=== PATIENT | female | born 1980 | race Caucasian/White ===

== ENCOUNTER 2017-03-30 22:10 | Emergency (ER) | payer OTHER ==
[~2017-03-30] VITALS: Ht 162.6 cm; Wt 77.1 kg
[2017-03-30] MEDS ORDERED: NORCO 5-325 TA1 EACH PO (22:53)
[2017-03-30 23:17] VITALS: BP 100/58
== END 2017-03-30 22:54 | disposition home or self-care (01) ==
LOC: ER 22:10
DX: S63.502A Unspecified sprain of left wrist, initial encounter (principal); S90.211A Contusion of right great toe with damage to nail, initial encounter; F17.210 Nicotine dependence, cigarettes, uncomplicated; F10.99 Alcohol use, unspecified with unspecified alcohol-induced disorder; Z88.8 Allergy status to other drugs, medicaments and biological substances; Z88.1 Allergy status to other antibiotic agents; W18.30XA Fall on same level, unspecified, initial encounter; Y93.51 Activity, roller skating (inline) and skateboarding; Y92.89 Other specified places as the place of occurrence of the external cause; Y99.8 Other external cause status

== ENCOUNTER 2017-06-14 20:12 | Emergency (ER) | payer OTHER ==
[~2017-06-14] VITALS: Ht 162.6 cm; Wt 72.6 kg
--- NOTE | ~2017-06-14 | EKG ---
[address] [address] ELECTROCARDIOGRAM REPORT Name: BERNIE JONA Jessie Room #: [facility]#: [id number] Admission: 06/14/17 Attend Phys: Discharge: 06/15/17 Date of : 84 Report #: [id number] THIS REPORT FOR: //name// [facility] ED Test Date: 2017-06-14 Test Time: 22:15:36 Pat Name: CARLITO JO Department: Room: Gender: F Billing Spec: ERIC : 1980 Requested By: Jim Patel Order Number: [id number] MD: Jared Vargas Measurements Intervals Ledbetter Rate: 83 P: 69 SD: 151 QRS: 9 QRSD: 107 T: 5 QT: 422 QTc: 496 Interpretive Statements Sinus rhythm RSR' in V1 or V2, probably normal variant Borderline T wave abnormalities Electronically Signed On 06-15-2017 19:39:56 CDT by Jared Vargas [email or web address] <ELECTRONICALLY SIGNED> By: Jared Vargas MD 06/15/17 1939 2215 221 Jared Vargas MD /GILL
[~2017-06-14 20:12] MED LIST: NORCO 5-325 TA1 EACH PO
[2017-06-14] MEDS ORDERED: LITHIUM CARBON300 M7 PO (21:02)
[2017-06-14] MEDS ORDERED: NEURONTIN600 MG PO (21:03)
[2017-06-14] MEDS ORDERED: VALIUM2 MG PO (21:03)
[2017-06-14 21:36] LABS: ABSOLUTE NEUTROPHILS 14.6 thou/uL (1.4-8.2); BASOPHILS 0.4 % (0.0-2.0); EOSINOPHILS 0.3 % (0.0-3.0); HEMOGLOBIN 14.7 gm/dL (12.0-15.0); LYMPHOCYTES 9.9 % (24.0-44.0); MANUAL DIFF NO; MCH 29.2 pg (26.0-34.0); MCHC 33.5 g/dL (28.0-37.0); MCV 87.4 fL (80.0-100.0); MONOCYTES 5.3 % (1.0-8.0); PLATELET COUNT 305 thou/uL (150-400); POLYS 84.1 % (36.0-66.0); RBC 5.03 mil/uL (4.20-5.00); RDW 13.5 % (10.5-14.5); WBC 17.3 thou/uL (4.0-11.0)
[2017-06-14 21:47] LABS: ANION GAP 15 mmol/L (7-16); BUN 13 mg/dL (7-18); CALCIUM 9.5 mg/dL (8.5-10.1); CHLORIDE 101 mmol/L (98-107); CO2 23 mmol/L (21-32); CREATININE 1.3 mg/dL (0.6-1.0); GLUCOSE 65 mg/dL (74-106); POTASSIUM 3.7 mmol/L (3.5-5.1); SODIUM 139 mmol/L (136-145)
[2017-06-14 21:51] LABS: ACETAMINOPHEN 5 ug/mL (10-30); ALBUMIN 3.7 g/dL (3.4-5.0); ALKALINE PHOSPHATASE 69 U/L (46-116); SALICYLATE < 2.8 mg/dL (2.8-20.0); SGOT 61 U/L (15-37); SGPT 44 U/L (30-65); TOTAL BILIRUBIN 0.7 mg/dL (<0.1-1.0)
[2017-06-14 22:41] LABS: URINE BLOOD NEGATIVE (Negative); URINE COLOR YELLOW; URINE GLUCOSE-RANDOM* NEGATIVE (Negative); URINE KETONES 2+ (Negative); URINE NITRITE NEGATIVE (Negative); URINE PROTEIN (DIPSTICK) NEGATIVE (Negative); URINE UROBILINOGEN 0.2 E.U./dl (0.2-1.0)
[2017-06-14 22:42] LABS: ICTOTEST (BILI CONFIRMATORY) Negative (Negative); URINE BILIRUBIN NEGATIVE (Negative)
[2017-06-14 22:52] LABS: AMP/METHAMP POSITIVE (Negative); BARBITURATES POSITIVE (Negative); BENZODIAZEPINES POSITIVE (Negative); COCAINE Negative (Negative); METHADONE Negative (Negative); OPIATES Negative (Negative); PCP Negative (Negative); THC POSITIVE (Negative)
[2017-06-15 07:28] VITALS: BP 111/73
== END 2017-06-15 07:29 | disposition home or self-care (01) ==
LOC: ER 20:12
PROVIDERS: Physician Assistant
DX: F23 Brief psychotic disorder (principal); F15.10 Other stimulant abuse, uncomplicated; F22 Delusional disorders; I10 Essential (primary) hypertension; F31.9 Bipolar disorder, unspecified; F43.10 Post-traumatic stress disorder, unspecified; F41.0 Panic disorder [episodic paroxysmal anxiety]; F90.9 Attention-deficit hyperactivity disorder, unspecified type; F17.210 Nicotine dependence, cigarettes, uncomplicated; F10.99 Alcohol use, unspecified with unspecified alcohol-induced disorder; Z88.1 Allergy status to other antibiotic agents; Z88.8 Allergy status to other drugs, medicaments and biological substances